=== PATIENT | male | born 1965 | race Caucasian/White ===

== ENCOUNTER 2024-02-03 12:50 | Observation (INO) | payer BC ==
[2024-02-03 13:29] LABS: BASOPHILS ABSOLUTE AUTO 0.04 10^3/uL (0.00-0.50); BASOPHILS PERCENT AUTO 0.7 % (0-1); EOSINOPHILS PERCENT AUTO 5.2 % (0-6); HEMATOCRIT 36.6 % (42.0-52.0); HEMOGLOBIN 12.4 g/dL (14.0-18.0); LYMPHOCYTES ABSOLUTE AUTO 1.23 10^3/uL (0.60-5.00); LYMPHOCYTES PERCENT AUTO 21.1 % (24-44); MEAN CORPUSCULAR HEMOGLOBIN 32.5 pg (27.0-32.0); MEAN CORPUSCULAR HGB CONC 33.9 g/dL (32.0-36.0); MEAN CORPUSCULAR VOLUME 96.1 fL (83.0-97.0); MONOCYTES ABSOLUTE AUTO 0.59 10^3/uL (0.00-1.50); MONOCYTES PERCENT AUTO 10.1 % (0-10); NEUTROPHILS ABSOLUTE AUTO 3.66 x10^3/uL (1.80-8.00); NEUTROPHILS PERCENT AUTO 62.9 % (41-71); PLATELET COUNT,PLT 212 10^3/uL (150-400); RED BLOOD CELL COUNT 3.81 x10^6/uL (4.50-6.00); WHITE BLOOD CELL COUNT,WBC 5.8 10^3/uL (4.0-11.0)
[2024-02-03 13:45] LABS: ALANINE AMINOTRANSFERASE,ALT 56 U/L (12-78); ALBUMIN 3.8 g/dL (3.4-5.0); ALKALINE PHOSPHATASE 97 U/L (46-116); ASPARTATE AMNIOTRANSFERASE,AST 24 U/L (15-37); BILIRUBIN TOTAL 0.9 mg/dL (0.0-1.0); BLOOD UREA NITROGEN,BUN 18 mg/dL (7-18); CALCIUM 9.3 mg/dL (8.4-10.1); CARBON DIOXIDE,CO2 24 mmol/L (21-32); CHLORIDE,CL 107 mEq/L (98-106); CREATININE 0.9 mg/dL (0.7-1.3); GLUCOSE RANDOM 102 mg/dL (75-99); MAGNESIUM 2.1 mg/dL (1.8-2.4); POTASSIUM,K 3.5 mEq/L (3.5-5.0); PROTEIN TOTAL,TP 7.5 g/dL (6.4-8.2); SODIUM,NA 146 mEq/L (136-145)
[2024-02-03 13:46] LABS: ESTIMATED GFR 99 mL/min (>=60)
[2024-02-03] MEDS ORDERED: Acetaminophen 325 MG Tab PO PRN (15:16)
[2024-02-03] MEDS ORDERED: Ondansetron 4 MG/2 ML SDV IV PRN (15:16)
[2024-02-03] MEDS ORDERED: Polyethylene Glycol 3350 Powder 17 GM Packet PO PRN (15:16)
[2024-02-03] MEDS ORDERED: Ondansetron 4 MG Tab.DIS PO PRN (15:16)
[2024-02-03] MEDS ORDERED: Docusate Sodium 100 MG Cap PO PRN (15:16)
[2024-02-03] MEDS: atorvaSTATin 20 MG Tab PO SCH (19:34)
[2024-02-03] MEDS: Melatonin 3 MG Tab PO SCH (19:34)
[2024-02-03] MEDS: buPROPion 100 MG Tab.SR PO SCH (19:34)
[2024-02-03] MEDS: Acetaminophen 325 MG Tab PO SCH (19:34)
[2024-02-03 23:24] LABS: APPEARANCE,URINE CLEAR (CLEAR); BILIRUBIN,URINE NEGATIVE (NEGATIVE); COLOR,URINE YELLOW (YELLOW); GLUCOSE,URINE NEGATIVE (NEGATIVE); KETONES,URINE NEGATIVE (NEGATIVE); LEUKOCYTE ESTERASE,URINE TRACE (NEGATIVE); NITRITE,URINE POSITIVE (NEGATIVE); OCCULT BLOOD,URINE NEGATIVE (NEGATIVE); PROTEIN,URINE TRACE mg/dL (NEGATIVE)
[2024-02-03 23:33] LABS: BACTERIA,URINE MODERATE /HPF (NOT SEEN); RBC,URINE 0-5 /HPF (0-5); SQUAMOUS EPITHELIAL CELLS,UR NOT SEEN /HPF (NOT SEEN); WBC,URINE 75-100 /HPF (0-5)
[2024-02-04] MEDS: cefTRIAXone 2 GM Vial IVPUSH ONE (00:08)
[2024-02-04] MEDS: Colchicine 0.6 MG Tab PO SCH (07:31)
[2024-02-04 07:32] LABS: BASOPHILS ABSOLUTE AUTO 0.05 10^3/uL (0.00-0.50); BASOPHILS PERCENT AUTO 0.9 % (0-1); EOSINOPHILS ABSOLUTE AUTO 0.29 10^3/uL (0.00-1.50); EOSINOPHILS PERCENT AUTO 5.3 % (0-6); HEMATOCRIT 33.9 % (42.0-52.0); HEMOGLOBIN 11.3 g/dL (14.0-18.0); IMMATURE GRAN ABSOLUTE AUTO 0.01 10^3/uL (0.00-0.49); IMMATURE GRAN PERCENT AUTO 0.2 % (0.0-4.9); LYMPHOCYTES ABSOLUTE AUTO 1.15 10^3/uL (0.60-5.00); LYMPHOCYTES PERCENT AUTO 21.2 % (24-44); MEAN CORPUSCULAR HEMOGLOBIN 31.6 pg (27.0-32.0); MEAN CORPUSCULAR HGB CONC 33.3 g/dL (32.0-36.0); MEAN CORPUSCULAR VOLUME 94.7 fL (83.0-97.0); MONOCYTES ABSOLUTE AUTO 0.55 10^3/uL (0.00-1.50); MONOCYTES PERCENT AUTO 10.1 % (0-10); NEUTROPHILS ABSOLUTE AUTO 3.38 x10^3/uL (1.80-8.00); NEUTROPHILS PERCENT AUTO 62.3 % (41-71); PLATELET COUNT,PLT 175 10^3/uL (150-400); RED BLOOD CELL COUNT 3.58 x10^6/uL (4.50-6.00); WHITE BLOOD CELL COUNT,WBC 5.4 10^3/uL (4.0-11.0)
[2024-02-04] MEDS: Cholecalciferol (Vitamin D3) 25 MCG Tab PO SCH (07:32)
[2024-02-04] MEDS: Losartan 100 MG Tab PO SCH (07:32)
[2024-02-04] MEDS: Aspirin 81 MG Tab.Chew PO SCH (07:32)
[2024-02-04] MEDS: Sennosides/Docusate Sodium 50-8.6 MG Tab PO SCH (07:33)
[2024-02-04] MEDS: Folic Acid 1 MG Tab PO SCH (07:33)
[2024-02-04] MEDS: amLODIPine 10 MG Tab PO SCH (07:33)
[2024-02-04] MEDS: Allopurinol 100 MG Tab PO SCH (07:33)
[2024-02-04] MEDS: Clopidogrel 75 MG Tab PO SCH (07:34)
[2024-02-04 07:35] LABS: CALCIUM 8.8 mg/dL (8.4-10.1); CREATININE 0.7 mg/dL (0.7-1.3); EST CRCL DRUG DOSING (CG) 122.51 mL/min; MAGNESIUM 1.9 mg/dL (1.8-2.4); POTASSIUM,K 3.4 mEq/L (3.5-5.0)
[2024-02-04] MEDS: cefTRIAXone 1 GM Vial IVPUSH SCH (19:30)
[2024-02-05 07:28] LABS: BASOPHILS ABSOLUTE AUTO 0.05 10^3/uL (0.00-0.50); BASOPHILS PERCENT AUTO 0.9 % (0-1); EOSINOPHILS ABSOLUTE AUTO 0.32 10^3/uL (0.00-1.50); EOSINOPHILS PERCENT AUTO 5.9 % (0-6); HEMATOCRIT 36.1 % (42.0-52.0); HEMOGLOBIN 12.2 g/dL (14.0-18.0); IMMATURE GRAN ABSOLUTE AUTO 0.01 10^3/uL (0.00-0.49); IMMATURE GRAN PERCENT AUTO 0.2 % (0.0-4.9); LYMPHOCYTES ABSOLUTE AUTO 1.13 10^3/uL (0.60-5.00); LYMPHOCYTES PERCENT AUTO 20.9 % (24-44); MEAN CORPUSCULAR HEMOGLOBIN 31.7 pg (27.0-32.0); MEAN CORPUSCULAR HGB CONC 33.8 g/dL (32.0-36.0); MEAN CORPUSCULAR VOLUME 93.8 fL (83.0-97.0); MONOCYTES ABSOLUTE AUTO 0.58 10^3/uL (0.00-1.50); MONOCYTES PERCENT AUTO 10.7 % (0-10); NEUTROPHILS ABSOLUTE AUTO 3.32 x10^3/uL (1.80-8.00); NEUTROPHILS PERCENT AUTO 61.4 % (41-71); PLATELET COUNT,PLT 186 10^3/uL (150-400); RED BLOOD CELL COUNT 3.85 x10^6/uL (4.50-6.00); WHITE BLOOD CELL COUNT,WBC 5.4 10^3/uL (4.0-11.0)
[2024-02-05 08:05] LABS: CALCIUM 8.9 mg/dL (8.4-10.1); CREATININE 0.7 mg/dL (0.7-1.3); EST CRCL DRUG DOSING (CG) 122.51 mL/min; POTASSIUM,K 3.5 mEq/L (3.5-5.0)
== END 2024-02-05 10:30 | disposition home or self-care (01) ==
LOC: CC.ED 12:50 → CC.MS 15:00 → UNDOADMOB 15:00 → CC.MS 15:06
PROVIDERS: ADMIT Nurse Practitioner; ATTEND Nurse Practitioner
DX: I69.354 Hemiplegia and hemiparesis following cerebral infarction affecting left non-dominant side (principal); N39.0 Urinary tract infection, site not specified; Z79.82 Long term (current) use of aspirin; Z79.899 Other long term (current) drug therapy
CPT/HCPCS: 36415; 70450; 70551; 71045; 80048; 80053; 81001; 83605; 83735; 84484; 85025; 85730; 87086; 87088; 87186; 87804; 93005; 93010; 96374; 96376; 99285; A9270-GY; G0378; J0696; U0002

== ENCOUNTER 2025-05-26 11:04 | Emergency (ER) | payer MEDICAID | END 2025-05-26 15:40 | disposition home or self-care (01) | LOC: CC.ED 11:04 | DX: L76.21 Postprocedural hemorrhage of skin and subcutaneous tissue following a dermatologic procedure (principal); I10 Essential (primary) hypertension; Z79.82 Long term (current) use of aspirin; Z79.899 Other long term (current) drug therapy | CPT/HCPCS: 99283 ==